=== PATIENT | female | born 1960 | race Two or more races ===

== ENCOUNTER 2025-06-22 19:31 | Emergency (ER) | payer MEDICAID ==
[~2025-06-22] VITALS: Ht 157.5 cm; Wt 81.6 kg
[2025-06-22] MEDS ORDERED: IBUPROFEN 600 MG TABLET ONE (19:54)
[2025-06-22] MEDS: IBUPROFEN 600 MG TABLET PO ONE (19:56)
[2025-06-22] MEDS ORDERED: TYL2T PO (21:52)
[2025-06-22 23:43] VITALS: BP 152/74; TEMP 98.7; O2SAT 96
== END 2025-06-22 23:44 | disposition home or self-care (01) ==
LOC: ER 19:33
DX: M54.2 Cervicalgia (principal); R07.81 Pleurodynia; I10 Essential (primary) hypertension; E11.9 Type 2 diabetes mellitus without complications; V49.19XA Passenger injured in collision with other motor vehicles in nontraffic accident, initial encounter; Y93.89 Activity, other specified; Y92.410 Unspecified street and highway as the place of occurrence of the external cause; Y99.9 Unspecified external cause status
CPT/HCPCS: 71100-TC; 72125-TC